=== PATIENT | female | born 1980 | race Caucasian/White ===

== ENCOUNTER 2018-11-16 18:17 | Emergency (ER) | payer MEDICAID, SELFPAY ==
[2018-11-16 18:31] VITALS: BP 134/82; PULSE 82; RESP 16; TEMP 37.2; O2SAT 100; BMI 31.4
[2018-11-16 18:43] VITALS: BP 134/82; PULSE 82; RESP 16; TEMP 37.2; O2SAT 100; BMI 31.4
--- NOTE | 2018-11-16 18:48 | XR_ITS ---
XR wrist RT min 3V HISTORY posttraumatic pain, laceration ITS.REASON: ANIMAL BITE ORDERING PHYSICIAN: Linda Saeed APRN PATIENT AGE: 38 years Comparison: None FINDINGS: No fracture or dislocation. No lytic or blastic change. There is normal mineralization.. The joint spaces are well-preserved. No significant degenerative/arthritic changes. No erosive changes evident.. Mild soft tissue swelling dorsally versus artifact from the wrap distal to this region. IMPRESSION: Mild soft tissue swelling otherwise negative
--- NOTE | 2018-11-16 18:51 | HMH.EDUTC ---
[facility] [place] Impression: Animal bite Disposition: Home, Self-Care Condition on Discharge: Good Instructions: Tetanus, Animal Bites, DI for Animal Bites, Amoxicillin and Clavulanic Acid, DTaP Vaccine Additional Instructions: Keep area clean and dry Watch area for signs of infection which include redness, drainage, puss or red streaks coming from wound area Straight to ER if any red streaks, drainage or signs of infection Return if needed Follow up with family doctor if no improvement or any worsening of symptoms Prescriptions: Amoxicillin/Potassium Clav [Augmentin 500mg tab] 500 mg PO TID #21 tab Referrals: Reid Alvarez MD [Primary Care Provider] - As needed Time of Disposition: 19:34 Medical Decision Making - Rafael Inquiry Pt receiving controlled substance: No Rafael was queried for this patient: No Vital Signs: 11/16/18 18:31 11/16/18 18:43 Temperature 98.9 F 98.9 F Temperature Source Oral Oral Pulse Rate [Right Brachial] 82 82 Respiratory Rate 16 16 Blood Pressure [Right Arm] 134/82 134/82 Blood Pressure Mean [Right Arm] 99 99 Blood Pressure Source [Right Arm] Automatic Cuff Automatic Cuff Blood Pressure Position [Right Arm] Sitting Sitting 02 Sat by Pulse Oximetry 100 100 Oxygen Delivery Method Room Air Room Air Orders (Tests/Meds): ED MEDICATIONS Discontinued Medications Generic Name Dose Route Start Last Admin Trade Name Freq PRN Reason Stop Dose Admin Acetaminophen 650 mg 11/16/18 18:56 11/16/18 19:06 Acetaminophen 325mg Tab PO 11/16/18 18:57 650 mg ONCE ONE Administration Tetanus/Reduced Diphtheria/Acell Pertussis 0.5 ml 11/16/18 18:45 11/16/18 18:51 Adacel Tdap 0.5ml Syringe IM 11/16/18 18:46 0.5 ml .ONCE ONE Administration ORDERS Category Date Time Status XR wrist RT min 3V Stat Exams 11/16/18 18:48 Ordered - Radiology Data #1 Image(s): Wrist Image Reviewed: Yes I reviewed the patient's radiology image Preliminary Findings: No Fracture Seen [facility] [place] - General Stated complaint: AO 11/16/18 12:00 animal bite Right arm pain Time Seen by Provider: 11/16/18 18:51 Mode of Arrival: Family Vehicle Source of Information: Patient Limitations: No Limitations Description of Symptoms (Recalled from Triage Doc. by RN): animal bite right wrist HEENT Symptoms (Recalled from RN notes): No Resp Symptoms (Recalled from RN notes): No Skin Symptoms (Recalled from RN notes): Yes MS Symptoms (Recalled from RN notes): No Functional Status (Recalled from RN notes): N/A - History of Present Illness Provider Complaint: Patient states that her friend has a petting zoo State that she was there and in a cage and a coatimudi came toward her and tried to bite her so she stuck out her right arm and it bite her in the wrist area causeing two puncture wounds on her wrist State that bite happened about noon and she got to thinking she may need tetanus and antibiotics - Related Data Previous Rx's Medication Instructions Recorded Amoxicillin/Potassium Clav 500 mg PO TID #21 tab 11/16/18 [Augmentin 500mg tab] Allergies Allergy/AdvReac Type Severity Reaction Status Date / Time No Known Allergies Allergy Verified 11/16/18 18:45 - Worker's Comp Is this a Worker's Comp case?: No [facility] History - Hepatitis A Screen Drug use history?: No High risk sexual behaviors?: No History of sexually transmitted infection?: No Currently employed?: No Childcare worker?: No Do you have indoor plumbing?: Yes Do you have electricity?: Yes Attestation statement:: This patient has been screened for Hepatitis A risk factors. I have reviewed the patient's past medical history: Yes - Social History Alcohol Intake: never Occupational Status: other - Psychiatric History Expresses thoughts of harming self/others: None Suicide Plan Description: No Plan ROS Obtained: Yes All systems reviewed & no additional complaints, Yes Systems reviewed as
--- NOTE | 2018-11-16 18:54 | ED_ITS ---
[facility] [place] Clinical Impression: Animal bite Disposition: Home, Self-Care Condition on Discharge: Good Instructions: Tetanus, Animal Bites, DI for Animal Bites, Amoxicillin and Clavulanic Acid, DTaP Vaccine Additional Instructions: Keep area clean and dry Watch area for signs of infection which include redness, drainage, puss or red streaks coming from wound area Straight to ER if any red streaks, drainage or signs of infection Return if needed Follow up with family doctor if no improvement or any worsening of symptoms Prescriptions: Amoxicillin/Potassium Clav [Augmentin 500mg tab] 500 mg PO TID #21 tab Referrals: Reid Alvarez MD [Primary Care Provider] - As needed Time of Disposition: 19:34 Medical Decision Making - Rafael Inquiry Pt receiving controlled substance: No Rafael was queried for this patient: No Vital Signs: 11/16/18 18:31 11/16/18 18:43 Temperature 98.9 F 98.9 F Temperature Source Oral Oral Pulse Rate [Right Brachial] 82 82 Respiratory Rate 16 16 Blood Pressure [Right Arm] 134/82 134/82 Blood Pressure Mean [Right Arm] 99 99 Blood Pressure Source [Right Arm] Automatic Cuff Automatic Cuff Blood Pressure Position [Right Arm] Sitting Sitting 02 Sat by Pulse Oximetry 100 100 Oxygen Delivery Method Room Air Room Air Orders (Tests/Meds): ED MEDICATIONS Discontinued Medications Generic Name Dose Route Start Last Admin Trade Name Freq PRN Reason Stop Dose Admin Acetaminophen 650 mg 11/16/18 18:56 11/16/18 19:06 Acetaminophen 325mg Tab PO 11/16/18 18:57 650 mg ONCE ONE Administration Tetanus/Reduced Diphtheria/Acell Pertussis 0.5 ml 11/16/18 18:45 11/16/18 18:51 Adacel Tdap 0.5ml Syringe IM 11/16/18 18:46 0.5 ml .ONCE ONE Administration ORDERS Category Date Time Status XR wrist RT min 3V Stat Exams 11/16/18 18:48 Ordered - Radiology Data #1 Image(s): Wrist Image Reviewed: Yes I reviewed the patient's radiology image Preliminary Findings: No Fracture Seen [facility] [place] - General Stated complaint: AO 11/16/18 12:00 animal bite Right arm pain Time Seen by Provider: 11/16/18 18:51 Mode of Arrival: Family Vehicle Source of Information: Patient Limitations: No Limitations Description of Symptoms (Recalled from Triage Doc. by RN): animal bite right wrist HEENT Symptoms (Recalled from RN notes): No Resp Symptoms (Recalled from RN notes): No Skin Symptoms (Recalled from RN notes): Yes MS Symptoms (Recalled from RN notes): No Functional Status (Recalled from RN notes): N/A - History of Present Illness Provider Complaint: Patient states that her friend has a petting zoo State that she was there and in a cage and a coatimudi came toward her and tried to bite her so she stuck out her right arm and it bite her in the wrist area causeing two puncture wounds on her wrist State that bite happened about noon and she got to thinking she may need tetanus and antibiotics - Related Data Previous Rx's Medication Instructions Recorded Amoxicillin/Potassium Clav 500 mg PO TID #21 tab 11/16/18 [Augmentin 500mg tab] Allergies
[2018-11-16 19:44] VITALS: BP 134/82; PULSE 82; RESP 17; TEMP 37.2; O2SAT 100
== END 2018-11-16 19:47 | disposition home or self-care (01) ==
PROVIDERS: Emergency Provider Nurse Practitioner; PCP Family Medicine
DX: S61.531A Puncture wound without foreign body of right wrist, initial encounter (principal); W64.XXXA Exposure to other animate mechanical forces, initial encounter; Y93.01 Activity, walking, marching and hiking; Y92.834 Zoological garden (Zoo) as the place of occurrence of the external cause; Z23 Encounter for immunization
CPT/HCPCS: 73110; 90471; 90715; 99201

== ENCOUNTER → 2022-10-18 07:44 | Outpatient (CLI) | payer OTHER, SELFPAY ==
--- NOTE | 2022-10-18 07:47 | MM_ITS ---
PROCEDURE INFORMATION: Exam: MG Bilateral Screening 3D Mammography Exam date and time: 10/18/2022 7:52 AM Age: 42 years old Clinical indication: Screening examination TECHNIQUE: Imaging protocol: Bilateral Screening tomosynthesis and 2D mammography including computer-aided detection (CAD) when performed. COMPARISON: No relevant prior studies available. Baseline FINDINGS: MAMMOGRAPHY: Breast composition: There are scattered areas of fibroglandular density. Mass: Either 3 contiguous masses or 1 lobulated mass with a combined dimension 2.5 cm is noted middle to posterior third the left 9 o'clock axis. Additional questionable focal 1. 2 cm mass anterior third of the left 12 o'clock axis. Architectural distortion: None. Calcifications: No suspicious calcifications. Asymmetric density: None. Skin thickening: None. Axillary adenopathy: None. IMPRESSION: Patient to be recalled for spot compression views of the left breast in the CC and MLO projections, a full 90 degree lateral view, and left breast ultrasound for further evaluation of 2 left breast masses. ASSESSMENT: BI-RADS Category 0: Incomplete- Need Additional Imaging Evaluation and/or Prior Mammograms for Comparison
== END ==
PROVIDERS: PCP Family Medicine; Visit Provider Obstetrics & Gynecology
DX: Z12.31 Encounter for screening mammogram for malignant neoplasm of breast (principal)
CPT/HCPCS: 77063; 77067

== ENCOUNTER → 2022-10-31 13:19 | Outpatient (CLI) | payer OTHER, SELFPAY ==
--- NOTE | 2022-10-31 13:19 | US_ITS ---
PROCEDURE INFORMATION: Exam: US Left Breast, Complete MG Left Diagnostic Breast Tomosynthesis Exam date and time: 10/31/2022 1:31 PM Age: 42 years old Clinical indication: Patient recalled on the basis of a screening mammogram for further evaluation; Left breast; masses TECHNIQUE: Imaging protocol: Complete ultrasound of all four quadrants of the left breast and the retroareolar regions, including ultrasound of the axilla when performed. Left Diagnostic tomosynthesis and 2D mammography including computer-aided detection (CAD) when performed. Unilateral or bilateral exam. COMPARISON: MG MM DIG SCREENING MAMM BI W/CAD 10/18/2022 7:52 AM FINDINGS: MAMMOGRAPHY: Digital diagnostic spot compression views of the left 9 o'clock axis demonstrates a persistent lobulated approximately 2.5 cm mass. Questionable persistent 1.2 cm mass in the anterior left 12 o'clock axis. ULTRASOUND: Sonographic images of the left breast including the retroareolar region, all 4 quadrants and the axilla demonstrates a heterogeneous lobulated hypoechoic solid mass in the 10 o'clock axis 5 cm from the nipple corresponding to the dominant mass on mammography. It measures 2.9 x 1.3 x 0.9 cm in dimension. The finding is radiographically indeterminate and somewhat suspicious for malignancy. In the left immediate retroareolar region is a heterogeneous hypoechoic mass measuring 0.6 x 0.4 x 0.5 cm in dimension most likely corresponding to the second mass seen on mammography in the anterior 12 o'clock axis. The finding is radiographically indeterminate. No axillary adenopathy. IMPRESSION: 2 indeterminate somewhat suspicious masses in the left breast. Ultrasound-guided core biopsy of both masses are recommended for further evaluation. ASSESSMENT: BI-RADS Category 4: Suspicious
== END ==
PROVIDERS: PCP Family Medicine; Visit Provider Obstetrics & Gynecology
DX: R92.8 Other abnormal and inconclusive findings on diagnostic imaging of breast (principal)
CPT/HCPCS: 76641; 77061; 77065; G0279

== ENCOUNTER → 2022-11-27 08:10 | Outpatient (CLI) | payer OTHER, SELFPAY ==
--- NOTE | 2022-11-27 08:13 | US_ITS ---
FINAL REPORT CLINICAL HISTORY: Abnormal mammogram and ultrasound. Left breast nodules FINDINGS: ULTRASOUND-GUIDED LEFT BREAST CORE BIOPSY x2 TECHNIQUE: Limited images were obtained to localize region of interest. The left breast was prepped in a routine sterile fashion and locally anesthetized with 1% lidocaine. Standard written informed consent was obtained. The biopsy needle was positioned within the outer periphery of the lesion at 10:00. A total of 4 passes were made with a 16 gauge core biopsy needle. A biopsy marker clip was deployed in satisfactory positio The 2nd biopsy was then performed involving a retroareolar subcentimeter nodule at 6:00. The biopsy needle was positioned within the outer periphery of the lesion. A total of 3 passes were made with a 18 gauge core biopsy needle. A biopsy marker clip was deployed in satisfactory position. Postbiopsy mammogram showed postbiopsy changes with clip in satisfactory position. Procedure was well tolerated . Mammogram showed both biopsy marker clips in good position CONCLUSION: 1. Technically successful ultrasound guided core biopsy of 2 separate left breast lesions as above. 2. Biopsy marker clips deployed Authenticated and [facility]
--- NOTE | 2022-11-27 08:14 | MM_ITS ---
FINAL REPORT CLINICAL HISTORY: post us bx, abnormal mammogram FINDINGS: MAMMOGRAM LEFT TECHNIQUE: Standard digital 2-D views COMPARISON: 10-18-22 DENSITY: There are scattered areas of fibroglandular density FINDINGS: Post biopsy marker clip is noted to be in satisfactory position within lobulated density in the lateral right breast on cc view and partially obscured nodule in the retroareolar right breast.. Postbiopsy changes are noted. IMPRESSION: Biopsy marker clips in good position RECOMMENDATION: Pending histopathology evaluation Authenticated and [facility]
== END ==
PROVIDERS: PCP Family Medicine; Visit Provider Surgery
DX: N63.20 Unspecified lump in the left breast, unspecified quadrant (principal)
CPT/HCPCS: 19083; 77065

== ENCOUNTER 2023-12-07 11:47 | Outpatient (CLI) | payer OTHER, SELFPAY ==
--- NOTE | 2023-12-07 11:53 | XR_ITS ---
FINAL REPORT CLINICAL HISTORY: BACK PAIN hx breast cancer, states her PCP wanted to have xrays to make sure cancer hadn't spread after being told she was in remission. COMPARISON: None FINDINGS: LUMBOSACRAL SPINE SERIES Five views of the lumbosacral spine were obtained. There is no fracture present. There is no malalignment. There is mild disc space narrowing at L3-4. Endplate sclerosis is noted. There are 2 large right kidney stones measuring up to 2.0 cm. Large amount of stool is noted throughout the colon. IMPRESSION: Mild degenerative changes without acute bony abnormality. Two large right kidney stones. Reviewed, Interpreted and Dictated by Erick Flores MD Transcribed by Naomi Oneil Authenticated and [facility]
== END 2023-12-07 23:59 | disposition home or self-care (01) ==
LOC: RAD 11:48
PROVIDERS: PCP Nurse Practitioner; Visit Provider Nurse Practitioner
DX: M54.9 Dorsalgia, unspecified (principal)
CPT/HCPCS: 72110

== ENCOUNTER 2024-08-07 11:57 | Outpatient (CLI) | payer OTHER, SELFPAY ==
--- NOTE | 2024-08-07 12:01 | XR_ITS ---
FINAL REPORT CLINICAL HISTORY: ROTATOR CUFF DUSFUNCTION FINDINGS: Right shoulder Three views were obtained. There is no fracture or dislocation. The joint spaces appear normal. No soft tissue abnormality is identified. IMPRESSION: No acute process. Reviewed, Interpreted and Dictated by Erick Flores MD Transcribed by Vera Rios Authenticated and [facility]
== END 2024-08-07 23:59 | disposition home or self-care (01) ==
LOC: RAD 11:59
PROVIDERS: PCP Nurse Practitioner; Visit Provider Nurse Practitioner
DX: M25.511 Pain in right shoulder (principal); M75.101 Unspecified rotator cuff tear or rupture of right shoulder, not specified as traumatic
CPT/HCPCS: 73030

== ENCOUNTER 2024-09-05 11:00 | Outpatient (RCR) | payer OTHER, SELFPAY | END 2024-09-05 23:59 | disposition home or self-care (01) | LOC: OT 11:00 | PROVIDERS: Visit Provider Family Medicine | DX: M25.511 Pain in right shoulder (principal) | CPT/HCPCS: 97014; 97110; 97140; 97166; 97530; G0283 ==

== ENCOUNTER 2024-10-20 08:45 | Outpatient (CLI) | payer OTHER, SELFPAY ==
--- NOTE | 2024-10-20 08:48 | MR_ITS ---
FINAL REPORT CLINICAL HISTORY: RT SHOULDER PAIN LROM PAIN SINCE 2023 PT STATED SHE DOESNT KNOW IF SHE INJURED IT WHILE LIFTING SOMETHING OVER HER HEAD, HURTS ALL THE TIME COMPARISON: None FINDINGS: Multi planar MR imaging of the right shoulder was performed. There is complex abnormal signal in the distal supraspinatus tendon, along with a full-thickness partial tear of a portion of that tendon. There is a small amount of abnormal fluid in the subacromial/subdeltoid bursa. There is a small defect in the base of the posterior labrum, that likely represents a small tear of the posterior labrum, best seen on image #15 of series 3 The biceps tendon appears intact. There is mild to moderate hypertrophic change of the acromioclavicular joint. IMPRESSION: Full-thickness partial tear of a portion of the distal supraspinatus tendon. Small defect in the base of the posterior labrum, likely represents a small tear. Reviewed, Interpreted and Dictated by Erick Flores MD Transcribed by Rachna Sifuentes Authenticated and [facility]
== END 2024-10-20 23:59 | disposition home or self-care (01) ==
LOC: RAD 08:45
PROVIDERS: PCP Nurse Practitioner; Visit Provider Nurse Practitioner
DX: M25.511 Pain in right shoulder (principal); M75.81 Other shoulder lesions, right shoulder
CPT/HCPCS: 73221

== ENCOUNTER 2025-01-12 11:00 | Outpatient (RCR) | payer OTHER, SELFPAY | END 2025-01-12 23:59 | disposition home or self-care (01) | LOC: OT 11:00 | PROVIDERS: Visit Provider Orthopaedic Surgery | DX: M75.101 Unspecified rotator cuff tear or rupture of right shoulder, not specified as traumatic (principal) | CPT/HCPCS: 97014; 97032; 97110; 97140; 97166; G0283 ==

== ENCOUNTER 2025-02-10 11:00 | Outpatient (RCR) | payer OTHER, SELFPAY | END 2025-02-10 23:59 | disposition home or self-care (01) | LOC: OT 11:00 | PROVIDERS: Visit Provider Orthopaedic Surgery | DX: M75.101 Unspecified rotator cuff tear or rupture of right shoulder, not specified as traumatic (principal) | CPT/HCPCS: 97014; 97032; 97110; 97140; 97168; 97530; G0283 ==

== ENCOUNTER 2025-03-13 08:00 | Outpatient (RCR) | payer OTHER, SELFPAY | END 2025-03-13 23:59 | disposition home or self-care (01) | LOC: OT 08:00 | PROVIDERS: Visit Provider Orthopaedic Surgery | DX: M75.101 Unspecified rotator cuff tear or rupture of right shoulder, not specified as traumatic (principal) | CPT/HCPCS: 97014; 97032; 97035; 97110; 97140; 97168; 97530; G0283 ==

== ENCOUNTER 2025-04-03 08:00 | Outpatient (RCR) | payer OTHER, SELFPAY | END 2025-04-03 23:59 | disposition home or self-care (01) | LOC: OT 08:00 | PROVIDERS: Visit Provider Orthopaedic Surgery | DX: M75.101 Unspecified rotator cuff tear or rupture of right shoulder, not specified as traumatic (principal) | CPT/HCPCS: 97014; 97032; 97110; 97140; 97168; 97530; G0283 ==